=== PATIENT | female | born 1935 | race African-American/Black ===

== ENCOUNTER 2018-08-04 22:10 | Emergency (ER) | payer OTHER ==
[~2018-08-04] VITALS: Ht 170.2 cm; Wt 93.1 kg
[2018-08-05] MEDS ORDERED: HYDRALAZINE HCL 100MG TABLET PO ONE
[2018-08-05 04:29] VITALS: BP 148/47
[2018-08-05] MEDS ORDERED: OXYMETAZOLINE HCL NASAL SPRAY 15ML LEFTNSTRL SCH (09:00)
== END 2018-08-05 04:32 | disposition home or self-care (01) ==
LOC: ER 22:10
DX: R04.0 Epistaxis (principal); I10 Essential (primary) hypertension; E78.00 Pure hypercholesterolemia, unspecified; Z96.659 Presence of unspecified artificial knee joint; Z88.2 Allergy status to sulfonamides
CPT/HCPCS: 99283